=== PATIENT | male | born 1955 | race Caucasian/White ===

== ENCOUNTER → 2017-08-31 | Outpatient (CLI) | payer OTHER ==
[~2017-08-31] MED LIST: ACE3 FT; ACET-3017 PO; ANTIDEPRESSANT; ASPI-715 PO; ATEN-1 PO; ATOR-1 PO; BP MED; BUPR-133 PO; CHOL500050 PO; CLI150 PO; CLOT15CR6; CYCL10TA29 PO; DESO15CR2 TP; FLUC200T56 PO; FLUT16SP19 NS; GABA-549 PO; GABA-551 PO; HYDR-393 PO; INSU100C14 SQ; INSU100I30 SQ; LANI SUBQ; LEVI SUBQ; LOR7.5/325 PO; LORA-788 PO; LOSA100T67 PO; LOSA50TA72 PO; METF-420 PO; METH-543 PO; METH4TAB66 PO; NOVOLINRPT IJ; NOVOLINRPT SQ; OXYGENHOME INH; PROP80TA25 PO; SERT-181 PO; SILD100T59 PO; SIMV-44 PO; TAMS0.4C70 PO; TOLN1POW MC; TRIA10.8; [UNRECOGNIZED DRUG - CODE] SUBQ; [UNRECOGNIZED DRUG - OTHER] IV; [UNRECOGNIZED DRUG - REMARK]
== END ==
LOC: MRI 00:33
PROVIDERS: ATTEND Nurse Practitioner Family
DX: Z02.9 Encounter for administrative examinations, unspecified (principal)
CPT/HCPCS: 70551

== ENCOUNTER → 2017-09-13 08:47 | Outpatient (RCR) | payer OTHER ==
--- NOTE | 2017-08-17 17:49 | PT INITIAL EVALUATION ---
MEDICAL DIAGNOSIS: L shoulder pain, unsteady gait, neuropathy TREATMENT DIAGNOSIS: same, decreased balance DATE OF ONSET: 06/06/17 SUBJECTIVE: Uday Tubbs presents to physical therapy with complaints of L shoulder pain due to a fall, decreased balance, and unsteady gait. He reports that he fell off his porch approximately 1.5 months ago injuring the L shoulder. He denies any resting pain 0/10 while L shoulder is donned in the sling. He reports that the L shoulder becomes aggravated when he moves his L shoulder in any direction. He rates the pain to be 10+/10. He states that he feels like the injury is staying the same. He states that it is difficulty for him to sleep at night due to the shoulder. He also reports that he is just falling for no reason and it aggravates him. He states that he has fallen twice in the bathroom, twice out of bed, and once off the porch. He reports that he has a history of mild stroke. He states that he has B tingling into his hands. He denies any history of cervical neck pain. Furthermore, he states that he has been approved for an MRI on his L shoulder but they have yet to schedule him for it. Pain location is anterior shoulder. REHAB PROBLEM LIST: Increased Pain Decreased ROM Decreased Strength Decreased Endurance Decreased Balance Decreased Function Decreased ADL's Decreased Mobility Decreased Gait PREVIOUS MEDICAL HISTORY: See EMR OCCUPATION: OBJECTIVE: Posture: He demonstrated B rounded shoulder, increased thoracic kyphosis, and decreased lumbar lordosis. ROM: Cervical flexion, extension, R/L side bending, protrusion, and retraction: WNL's, however, he demonstrated empty end feels with R/L rotation and R/L side bending. L shoulder: AROM: flexion: 40 deg, abduction: 45 deg, IR: 90 deg, ER: 30 deg. PROM: flexion: 60 deg, abduction: 80 deg, IR: 90 deg, and ER: 50 deg. Strength: L shoulder: IR, ER, flexion, scaption, abduction: weak and painful ( sharp pain) Palpation: TTP: over anterior shoulder: insertional points of LHB and supraspinatus. He was also tender over the spine of the scapulae that sent a sharp pain down into his B hands and caused increased tingling Special Tests: Repeated retraction and extension: centralized and abolished B hand tingling and increased AROM of cervical spine in all directions with normal end feels. Mobility: Modified independent Gait: With walking cane, he demonstrated the following gait mechanics: increased base of support, equal step lengths, increased deviation to the R, decreased B feet clearance, and antalgic gait. Balance: Firm surface, normal base of support, eyes opened: 30 seconds. Firm surface, decreased base of support, eyes opened: less than 5 seconds. ASSESSMENT: Uday will benefit from skilled physical therapy to improve function and QOL to return to prior level of function. Based on the signs or symptoms, his L shoulder appears to have significant tears (LHB, supraspinatus) , however, the tears are not fully torn (I believe). Short Term Goals 3 weeks: Pt will improve L shoulder PROM of flexion, abduction, ER, and scaption from baseline to equal to R shoulder motions to improve function and QOL. 6 weeks: Pt will improve L shoulder AAROM of flexion, abduction, ER, and scaption from baseline to equal to R shoulder motions to improve function and QOL. 9 weeks: Pt will improve L shoulder AROM of flexion, abduction, ER, and scaption from baseline to equal to R shoulder motions to improve function and QOL. 12 weeks: Pt will improve balance strategies from baseline to 30 seconds or greater with complaint surface, decreased base of support, and eyes closed to decrease fall risk and improve function and QOL. Patient's Goals improve balance and make the L shoulder work again PLAN: Patient to be seen for Manual Therapy/STM/MET Strengthening/condition Ice/Heat Range of Motion Spinal Stabilization Work Hardening/Cond Stretching Iontophoresis Neuromuscular Re-ed Closed Chain Program Electrical Stim Posture/Body mechanics Gait Trg/Balance Trg Home Exercise Program Therapeutic Activities 2x/Week for 12 weeks If you have any questions, comments, or concerns about this report or plan, please contact me at . Thank you, Дмитрий Kay, PT, DPT MTDD
[~2017-09-13 08:47] MED LIST changes: +HYDR-385 PO; +PROP40TA45 PO
--- NOTE | 2017-10-19 16:31 | PT PLAN OF CARE ---
Physician: Feli Asif APRN MEDICAL BILLING SUPERVISOR-C Patient is being seen: 2x/week Therapist: Дмитрий Kay, PT, DPT Medical Diagnosis: L shoulder pain, unsteady gait, neuropathy Treatment Diagnosis: same, decreased balance Date of Onset: 06/06/17 Date of Initial Evaluation: 08/16/17 Date patient was last seen: 09/30/17 Number of treatments: 3 Number of cancellations/No shows: 5 INTERVENTIONS: Manual Therapy/STM/MET Strengthening/condition Ice/Heat Range of Motion Spinal Stabilization Work Hardening/Cond Stretching Iontophoresis Neuromuscular Re-ed Closed Chain Program Electrical Stim Posture/Body mechanics Gait Trg/Balance Trg Home Exercise Program Therapeutic Activities GOALS: 3 weeks: Pt will improve L shoulder PROM of flexion, abduction, ER, and scaption from baseline to equal to R shoulder motions to improve function and QOL. 6 weeks: Pt will improve L shoulder AAROM of flexion, abduction, ER, and scaption from baseline to equal to R shoulder motions to improve function and QOL. 9 weeks: Pt will improve L shoulder AROM of flexion, abduction, ER, and scaption from baseline to equal to R shoulder motions to improve function and QOL. 12 weeks: Pt will improve balance strategies from baseline to 30 seconds or greater with complaint surface, decreased base of support, and eyes closed to decrease fall risk and improve function and QOL. PATIENT'S GOAL: improve balance and make the L shoulder work again Status of Patient's Goals: Unknown Patient Compliance: Poor Prognosis: Good Reasons for discontinuing therapy: This is a discharge note for Uday Tubbs. He made zero progress with his L shoulder due to increased pain and poor compliance. He demonstrated orthostatic hypotension and since that was discovered in PT he has not returned to PT. As a result, he will be discharged from PT. Posture: He demonstrated B rounded shoulder, increased thoracic kyphosis, and decreased lumbar lordosis. ROM: Cervical flexion, extension, R/L side bending, protrusion, and retraction: WNL's, however, he demonstrated empty end feels with R/L rotation and R/L side bending. L shoulder: AROM: flexion: 40 deg, abduction: 45 deg, IR: 90 deg, ER: 30 deg. PROM: flexion: 60 deg, abduction: 80 deg, IR: 90 deg, and ER: 50 deg. Strength: L shoulder: IR, ER, flexion, scaption, abduction: weak and painful ( sharp pain) Palpation: TTP: over anterior shoulder: insertional points of LHB and supraspinatus. He was also tender over the spine of the scapulae that sent a sharp pain down into his B hands and caused increased tingling Special Tests: Repeated retraction and extension: centralized and abolished B hand tingling and increased AROM of cervical spine in all directions with normal end feels. Mobility: Modified independent If you have any questions, please contact me at [phone]. Thank you, Дмитрий Kay, PT, DPT JINAD
== END | disposition home or self-care (01) ==
LOC: PT 08-16 14:42
PROVIDERS: ATTEND Nurse Practitioner Family
DX: M25.512 Pain in left shoulder (principal); R26.81 Unsteadiness on feet; G62.9 Polyneuropathy, unspecified; R29.6 Repeated falls; Z86.73 Personal history of transient ischemic attack (TIA), and cerebral infarction without residual deficits; R42 Dizziness and giddiness; I95.1 Orthostatic hypotension
CPT/HCPCS: 97163

== ENCOUNTER → 2017-12-28 | Outpatient (CLI) | payer OTHER ==
[~2017-12-28] MED LIST changes: +OXYC-865 PO
[2017-12-28 10:39] LABS: PLATELET COUNT, AUTOMATED 273 K/uL (150-450)
--- NOTE | 2017-12-28 10:50 | EKG ---
FACILITY: [facility] PATIENT NAME: RACHAEL LIVINGSTON : [id number] MR: [id number] V: [id number] EXAM DATE: ORDERING PHYSICIAN: OANH KINCAID TECHNOLOGIST: MARV Fried Reason : preop-left shoulder Blood Pressure : / mmHG Vent. Rate : 070 BPM Atrial Rate : 070 BPM P-R Int : 168 ms QRS Dur : 098 ms QT Int : 406 ms P-R-T Axes : 057 079 047 degrees QTc Int : 438 ms Normal sinus rhythm Normal ECG No previous ECGs available Referred By: Confirmed By:
== END ==
LOC: LAB 10:06
PROVIDERS: ATTEND Orthopaedic Surgery Hand Surgery
DX: Z01.812 Encounter for preprocedural laboratory examination (principal); Z01.810 Encounter for preprocedural cardiovascular examination; M19.012 Primary osteoarthritis, left shoulder; M25.512 Pain in left shoulder; I10 Essential (primary) hypertension; E78.5 Hyperlipidemia, unspecified; E11.9 Type 2 diabetes mellitus without complications; F32.9 Major depressive disorder, single episode, unspecified; F17.220 Nicotine dependence, chewing tobacco, uncomplicated; G47.33 Obstructive sleep apnea (adult) (pediatric)
CPT/HCPCS: 36415; 81001; 82040; 82247; 82310; 82374; 82435; 82565; 82947; 84075; 84132; 84155; 84295; 84450; 84460; 84520; 85025; 86900; 86901; 93005

== ENCOUNTER → 2018-02-22 | Outpatient (CLI) | payer OTHER ==
[~2018-02-22] MED LIST changes: -METF-420 PO; +METF-421 PO; +NOVOLINRPT SUBQ; +OXYC1TAB78 PO
[2018-02-22 10:50] LABS: PLATELET COUNT, AUTOMATED 265 K/uL (150-450)
== END ==
LOC: LAB 10:30
PROVIDERS: ATTEND Nurse Practitioner Family
DX: E11.9 Type 2 diabetes mellitus without complications (principal); I10 Essential (primary) hypertension; E78.5 Hyperlipidemia, unspecified
CPT/HCPCS: 36415; 82040; 82247; 82310; 82374; 82435; 82465; 82565; 82947; 83036; 83718; 84075; 84132; 84153; 84155; 84295; 84443; 84450; 84460; 84478; 84520; 85025

== ENCOUNTER 2018-03-30 14:49 | Outpatient (RCR) | payer OTHER ==
[2018-03-24 10:36] VITALS: BP 120/63
--- NOTE | 2018-03-24 18:28 | ONCOLOGY CONSULTATION ---
EVENT DATE: March 24, 2018 REFERRING PHYSICIAN Brandie Hollis REASON FOR CONSULTATION Evaluation and management of neutrophilic leukocytosis. HISTORY OF PRESENT ILLNESS Patient is a 62-year-old male who is followed by Feli Lee, and patient recently was found to have high neutrophilic count by his blood count done on February 22, 2018. His white count was 15.3, hemoglobin normal at 14.5, hematocrit normal at 42.8, platelets normal at 265,000. Differential count showed absolute neutrophilic count at 10,000 and lymphocytic count was mildly elevated at 3.9. Patient denies any constitutional symptoms. Denies any current infection. He is in chronic pain from his left shoulder injury. PAST MEDICAL HISTORY 1. Diabetes mellitus. 2. Hypertension. 3. Hypercholesterolemia. 4. History of left renal stones status post left nephrectomy. PAST SURGICAL HISTORY 1. Left nephrectomy. 2. Tonsillectomy. 3. Appendectomy done with nephrectomy surgery. SOCIAL HISTORY Patient is with four children, on disability. He quit tobacco 10 years ago after two packs a day for 35 years. He occasionally drinks alcohol. Denies abuse of illicit drugs. FAMILY HISTORY Paternal aunt had breast cancer. Sister with esophageal cancer. CURRENT MEDICATIONS 1. Percocet 5/325 one tablet q.6 hourly p.r.n. for pain. 2. Regular insulin, Novolin R 70 units subcutaneously b.i.d. 3. Lantus insulin 70 units subcutaneously q.12 hourly. 4. Losartan 50 mg tablet daily. 5. Metformin 1000 mg twice daily. 6. Robaxin 750 mg tablet two tablets three times daily for muscle spasms. 7. Atenolol 50 mg twice daily. 8. Propanolol 40 mg tablet twice daily. 9. Gabapentin 400 mg two tablets twice daily. 10. Sertraline 100 mg one and a half tablets daily. 11. Flonase 50 mcg nasal spray two sprays daily. 12. Oxygen 2L per minute. 13. Tamsulosin 0.4 mg daily. 14. Atorvastatin 80 mg daily. 15. Wellbutrin SR 150 mg b.i.d. 16. Vitamin D3 50,000 units daily. 17. Aspirin 81 mg daily. ALLERGIES PENICILLIN, which causes severe anaphylaxis. REVIEW OF SYSTEMS CONSTITUTIONAL: No appetite or weight change. No fever, chills or sweating. No recent infection. HEENT: Ears: No tinnitus or hearing problem. Nose: No nasal discharge or epistaxis. Throat: No sore throat or mouth ulcers. Eyes: No diplopia or visual changes. RESPIRATORY: No shortness of breath. No cough, expectoration or hemoptysis. CARDIOVASCULAR: No chest pain, orthopnea, or paroxysmal nocturnal dyspnea (PND) . No edema. No palpitations. GASTROINTESTINAL: No nausea or vomiting. She has intermittent diarrhea. No constipation. No change in bowel movements. No heartburn or swallowing difficulties. No abdominal pain. No jaundice. No hematemesis, melena or rectal bleeding. GENITOURINARY: No hematuria or dysuria. MUSCULOSKELETAL: He has pain in the left shoulder due to left rotator cuff injury, and the patient is planned to have surgery for that. NEUROLOGICAL: He has tingling and numbness in the hands and feet from his diabetes. No headaches or convulsions. HEMATOLOGIC/LYMPHATIC: No bleeding or easy bruising. No weakness or fatigue. No enlarged lymph nodes. SKIN: No skin rash or lumps. PSYCHIATRIC: No anxiety or depression. PHYSICAL EXAMINATION GENERAL: Looks stable. Well-developed, well-nourished, and in no acute distress. VITAL SIGNS: Blood pressure 120/63, pulse 63 per minute, respirations 18 per minute, temperature 98.9, pulse ox 91% on room air. HEENT: Head: Atraumatic. No sinus tenderness to palpation. Eyes: No icterus or conjunctivitis. Mouth and Throat: No oral thrush or mucositis. NECK: Supple. No cervical or supraclavicular lymphadenopathy. LUNGS: Clear to auscultation and percussion bilaterally. HEART: Regular rate and rhythm. No gallops, murmurs, clicks or rubs. ABDOMEN: Soft and lax. No tenderness. No hepatosplenomegaly. No masses. EXTREMITIES: No cyanosis, clubbing or edema. LYMPHATICS: No peripheral lymphadenopathy. NEUROLOGICAL: Conscious, alert and oriented times three. No focal motor or sensory deficits. PSYCHIATRIC: Mood and affect appear normal. SKIN: No skin rash, bruise or purpuric eruption. ASSESSMENT Neutrophilic leukocytosis. Could be reactive in nature given that he has chronic pain and also due to anxiety or exercising. Acute inflammation or infection could also raise the neutrophil count. I am planning to repeat his CBC, and I will check his leukocyte alkaline phosphatase score, which if high, this goes with inflammation rather than a myeloproliferative disorder. If the lab score is low then I will investigate for a myeloproliferative disorder. I am planning to check also the parameters for inflammation including fibrinogen, C-reactive protein and erythrocyte sedimentation rate. I will see the patient after the above for further evaluation and management. Given that his blood count did not show any left shift or leukoerythroblastic blood fill with normal hemoglobin and platelets, I believe his neutrophilic leukocytosis most probably due to a benign cause. PLAN 1. CBC. 2. C-reactive protein. 3. ESR. 4. Fibrinogen level. 5. Lab score. 6. Patient to return in two weeks for further evaluation and management. 7. Patient to contact us for any new concern or complaints. JULIENNE
[2018-03-30 15:06] VITALS: BP 147/75
[2018-03-30 15:22] LABS: PLATELET COUNT, AUTOMATED 278 K/uL (150-450)
[2018-04-07] MEDS ORDERED: OXYC-865 PO (16:54)
[2018-05-10] MEDS ORDERED: OXYC-865 PO (10:11)
== END 2018-05-06 09:03 | disposition home or self-care (01) ==
LOC: SPU 14:49
PROVIDERS: ATTEND Internal Medicine Hematology
DX: D72.819 Decreased white blood cell count, unspecified (principal); E11.9 Type 2 diabetes mellitus without complications; I10 Essential (primary) hypertension; E78.00 Pure hypercholesterolemia, unspecified; Z87.891 Personal history of nicotine dependence; M25.512 Pain in left shoulder; G89.29 Other chronic pain
CPT/HCPCS: 36415; 85025; 85384; 85540; 85651; 86140; 99202

== ENCOUNTER → 2018-06-02 | Outpatient (CLI) | payer OTHER ==
[~2018-06-02] MED LIST changes: +FLU60SYR36 IM; -LOSA100T67 PO; +LOSA100T69 PO; -LOSA50TA72 PO; +LOSA50TA74 PO; -METF-421 PO; +METF-452 PO
[2018-06-02 16:52] LABS: PLATELET COUNT, AUTOMATED 275 K/uL (150-450)
--- NOTE | 2018-06-02 17:20 | RADIOLOGY IMAGING REPORT ---
[place] [facility] [place] Uday Tubbs : 1955 MR: [id number] V: [id number] EXAM DATE: ORDERING PHYSICIAN: GLEN SANTIZO TECHNOLOGIST: Location: [facility] [place] Patient: Uday Tubbs : 1955 Visit/Account:[id number] Date of Sevice: 06/02/2018 2 VIEWS CHEST INDICATION: Pre-op evaluation. COMPARISON: 03/12/2017. FINDINGS: Cardiomediastinal silhouette and pulmonary vessels within normal limits. There is no focal infiltrate or lobar consolidation. There is no pneumothorax or pleural effusion. No nodule. Mild scarring. Upper abdomen is unremarkable. No acute bony abnormality. Small metallic-like density overlying the l eft upper chest. This may be overlying the patient. IMPRESSION: 1. No acute cardiopulmonary process. Report Dictated By: Eduardo He at 06/02/2018 5:15 PM Report E-Signed By: Eduardo He at 06/02/2018 5:16 PM WSN:[id number]
--- NOTE | 2018-06-03 09:41 | EKG ---
FACILITY: [facility] - [place] PATIENT NAME: RACHAEL LIVINGSTON : [id number] MR: [id number] V: [id number] EXAM DATE: ORDERING PHYSICIAN: GLEN SANTIZO TECHNOLOGIST: NINFA Fried Reason : TYPE 2 DIABETES Blood Pressure : / mmHG Vent. Rate : 069 BPM Atrial Rate : 069 BPM P-R Int : 174 ms QRS Dur : 098 ms QT Int : 412 ms P-R-T Axes : 081 082 074 degrees QTc Int : 441 ms Normal sinus rhythm Normal ECG When compared with ECG of 28-DEC-2017 10:44, Nonspecific T wave abnormality no longer evident in Anterior leads Confirmed by JOHNNA JENSEN ([id number]) on 06/03/2018 7:53:45 PM Referred By: Confirmed By:JOHNNA JENSEN
== END ==
LOC: LAB 16:27
PROVIDERS: ATTEND Nurse Practitioner Family
DX: Z01.818 Encounter for other preprocedural examination (principal); E11.65 Type 2 diabetes mellitus with hyperglycemia
CPT/HCPCS: 36415; 71046; 82040; 82247; 82310; 82374; 82435; 82565; 82947; 83036; 84075; 84132; 84155; 84295; 84443; 84450; 84460; 84520; 85025

== ENCOUNTER → 2018-09-20 | Outpatient (CLI) | payer OTHER ==
[~2018-09-20] MED LIST changes: -LOSA100T69 PO; +LOSA100T75 PO; -LOSA50TA74 PO; +LOSA50TA80 PO; +NYST15CR32 TP
[2018-09-20 09:51] LABS: LDL CHOLESTEROL 107 mg/dl
== END ==
LOC: LAB 09:08
PROVIDERS: ATTEND Nurse Practitioner Family
DX: E11.65 Type 2 diabetes mellitus with hyperglycemia (principal); I10 Essential (primary) hypertension
CPT/HCPCS: 36415; 82040; 82247; 82310; 82374; 82435; 82465; 82565; 82947; 83036; 83718; 84075; 84132; 84155; 84295; 84443; 84450; 84460; 84478; 84520

== ENCOUNTER → 2018-12-05 | Outpatient (CLI) | payer OTHER ==
[~2018-12-05] MED LIST changes: +TAMS0.4C25 PO; +[UNRECOGNIZED DRUG - SUPPLY]; +[UNRECOGNIZED DRUG - SUPPLY]
[2018-12-05 16:49] LABS: PLATELET COUNT, AUTOMATED 299 K/uL (150-450)
== END ==
LOC: LAB 15:11
PROVIDERS: ATTEND Nurse Practitioner Family
DX: E11.65 Type 2 diabetes mellitus with hyperglycemia (principal); E11.9 Type 2 diabetes mellitus without complications; I10 Essential (primary) hypertension
CPT/HCPCS: 82040; 82247; 82310; 82374; 82435; 82565; 82947; 83036; 84075; 84132; 84155; 84295; 84443; 84450; 84460; 84520; 85025

== ENCOUNTER → 2019-01-13 | Outpatient (CLI) | payer OTHER ==
--- NOTE | 2019-01-13 16:03 | EKG ---
FACILITY: [facility] - [place] PATIENT NAME: RACHAEL LIVINGSTON : [id number] MR: [id number] V: [id number] EXAM DATE: ORDERING PHYSICIAN: GLEN SANTIZO TECHNOLOGIST: LV Test Reason : EKG Blood Pressure : / mmHG Vent. Rate : 060 BPM Atrial Rate : 060 BPM P-R Int : 166 ms QRS Dur : 094 ms QT Int : 434 ms P-R-T Axes : 021 083 066 degrees QTc Int : 434 ms Normal sinus rhythm Normal ECG When compared with ECG of 02-JUN-2018 15:51, No significant change was found Confirmed by JAC DONNELLY ([id number]) on 01/13/2019 5:13:36 PM Referred By: SUKHDEV Confirmed By:JAC DONNELLY
== END ==
LOC: RESP 11-09 02:40
PROVIDERS: ATTEND Nurse Practitioner Family
DX: Z01.818 Encounter for other preprocedural examination (principal)

== ENCOUNTER → 2019-04-04 | Outpatient (CLI) | payer MEDICARE, OTHER ==
[~2019-04-04] MED LIST changes: +TRAM-420 PO; +[UNRECOGNIZED DRUG - OTHER]; +[UNRECOGNIZED DRUG - SUPPLY]
[2019-04-04 11:45] LABS: PLATELET COUNT, AUTOMATED 281 K/uL (150-450)
--- NOTE | 2019-04-04 12:39 | EKG ---
[facility] PATIENT NAME: RACHAEL LIVINGSTON : [id number] MR: [id number] V: [id number] EXAM DATE: ORDERING PHYSICIAN: GLEN SANTIZO TECHNOLOGIST: MAKENZIE Test Reason : SYNCOPE Blood Pressure : / mmHG Vent. Rate : 065 BPM Atrial Rate : 065 BPM P-R Int : 162 ms QRS Dur : 096 ms QT Int : 424 ms P-R-T Axes : 055 088 075 degrees QTc Int : 440 ms Normal sinus rhythm Normal ECG When compared with ECG of 04-APR-2019 10:14, Previous ECG has undetermined rhythm, needs review Confirmed by VADIM VERDIN ([id number]) on 04/04/2019 2:58:02 PM Referred By: SUKHDEV Confirmed By:VADIM VERDIN
== END ==
LOC: LAB 10:49
PROVIDERS: ATTEND Nurse Practitioner Family
DX: R55 Syncope and collapse (principal); E11.65 Type 2 diabetes mellitus with hyperglycemia
CPT/HCPCS: 36415; 82040; 82247; 82310; 82374; 82435; 82565; 82947; 83036; 84075; 84132; 84155; 84295; 84450; 84460; 84520; 85025